=== PATIENT | female | born 1965 | race Caucasian/White ===

== ENCOUNTER 2016-09-13 23:32 | Emergency (ER) | payer BC ==
[~2016-09-13 23:32] MED LIST: AFRIN15 NAS; ELIQUIS 5 MG TAB5 MG PO; ESTROVEN OTC PO; FLEX PO; MOBIC15 MG PO
== END 2016-09-14 00:53 | disposition home or self-care (01) ==
LOC: ER 23:32
DX: S89.91XA Unspecified injury of right lower leg, initial encounter (principal); Z79.899 Other long term (current) drug therapy; W11.XXXA Fall on and from ladder, initial encounter
CPT/HCPCS: 73560-RT; 99283; A9270-GY